=== PATIENT | male | born 1975 | race Caucasian/White ===

== ENCOUNTER 2022-01-21 20:05 | Emergency (ER) | payer MEDICAID ==
[~2022-01-21] VITALS: Ht 175.3 cm; Wt 71.8 kg
[~2022-01-21 20:05] MED LIST: DIAZ5TAB PO; DIPH-186 PO; DIPH1TAB PO; HC A30CR2 RC; HYDR-3875 PO; HYDR25SU32 RC; HYDR25SU48 RC; HYDR30CR79 TP; IBUP-1986 PO; NO HOME MEDS; PROCHC RC
[2022-01-21] MEDS ORDERED: NALO4SPR BOTHNARES (21:55)
[2022-01-21 22:20] VITALS: BP 145/90
== END 2022-01-21 22:23 | disposition home or self-care (01) ==
LOC: ER 20:06
DX: T40.411A Poisoning by fentanyl or fentanyl analogs, accidental (unintentional), initial encounter (principal); R41.82 Altered mental status, unspecified; G43.909 Migraine, unspecified, not intractable, without status migrainosus; F41.9 Anxiety disorder, unspecified; F32.A Depression, unspecified; Z88.5 Allergy status to narcotic agent; Z88.8 Allergy status to other drugs, medicaments and biological substances; Z79.899 Other long term (current) drug therapy; Y92.89 Other specified places as the place of occurrence of the external cause
CPT/HCPCS: 93005; 99283